=== PATIENT | male | born 1980 | race Hispanic/Latino ===

== ENCOUNTER 2021-01-06 09:09 | Inpatient (IN) | payer OTHER ==
[2021-01-06] VITALS (17 sets, daily range): BP systolic 115–161; BP diastolic 60–90
[~2021-01-06] VITALS: Ht 175.3 cm; Wt 117.0 kg
[2021-01-06] MEDS ORDERED: ACETAMINOPHEN 325 MG TAB PO PRN ×2 (10:30)
[2021-01-06] MEDS ORDERED: ONDANSETRON 4MG INJ IV PRN (10:30)
[2021-01-06] MEDS ORDERED: ZOLPIDEM TARTRATE 5 MG TAB PO PRN (10:30)
[2021-01-06] MEDS ORDERED: MAG/ALUM/SIMETH 30 ML UDCUP PO PRN (10:30)
[2021-01-06] MEDS ORDERED: AMINOCAPROIC ACID 5,000MG VIAL IV ONE (12:08)
[2021-01-06] MEDS ORDERED: ALBUMIN (HUMAN) 25% 50 ML IV ONE (12:08)
[2021-01-06] MEDS ORDERED: NOREPINEPHRINE BITARTRATE 1 MG/1 ML ML IV ONE (12:08)
[2021-01-06] MEDS ORDERED: SODIUM BICARB 8.4% 50ML SYRINGE IVP ONE (12:08)
[2021-01-06] MEDS ORDERED: HEPARIN 10,000 UNIT/10ML (1,000 UNIT/ML) VIAL IV ONE (12:08)
[2021-01-06] MEDS ORDERED: CACL 1GM SYG IVP ONE (12:08)
[2021-01-06 12:18] LABS: BASOPHILS % (AUTO) 0.6 % (0.0-5.0); EOSINOPHILS % (AUTO) 3.1 % (0.0-8.0); HEMATOCRIT 40.1 % (42-54); LYMPHOCYTES % (AUTO) 19.2 % (21.0-51.0); MEAN CORPUSCULAR HEMOGLOBIN 30.6 pg (27.0-33.0); MEAN CORPUSCULAR HGB CONC 32.7 g/dL (32.0-36.0); MEAN CORPUSCULAR VOLUME 93.7 fL (79-99); NEUTROPHILS % (AUTO) 69.7 % (40.0-77.0); PLATELET COUNT (AUTO) 286 K/uL (130-400); RED BLOOD CELL COUNT(AUTO) 4.28 MIL/uL (4.50-6.20); WHITE BLOOD COUNT (AUTO) 9.7 K/uL (4.8-10.8)
[2021-01-06 12:30] LABS: ALBUMIN 4.5 g/dL (3.5-5.0); BILIRUBIN,DIRECT 0.1 mg/dL (0.0-0.3); BILIRUBIN,TOTAL 0.4 mg/dL (0.2-1.0); TOTAL PROTEIN, SERUM 8.6 g/dL (6.0-8.3)
[2021-01-06 12:45] LABS: CREATININE 9.9 mg/dL (0.5-1.5)
[2021-01-06 13:32] LABS: INR 0.98 (0.85-1.15); PROTHROMBIN TIME 10.7 SEC (9.6-11.6)
[2021-01-06] MEDS ORDERED: 0.9%NACL 1000ML 1,000 ML IV PRN (14:30)
[2021-01-07] VITALS (19 sets, daily range): BP systolic 89–162; BP diastolic 42–83
[2021-01-07] MEDS ORDERED: FOLI0.8T22 PO (00:20)
[2021-01-07] MEDS ORDERED: METO50 PO (00:20)
[2021-01-07] MEDS ORDERED: GLIP2.5T2 PO (00:20)
[2021-01-07] MEDS ORDERED: ASPI-1443 PO (00:20)
[2021-01-07] MEDS ORDERED: RIVA2.5T PO (00:20)
[2021-01-07] MEDS ORDERED: PANT40TA54 PO (00:20)
[2021-01-07] MEDS ORDERED: HYDR25 PO (00:20)
[2021-01-07] MEDS ORDERED: CALC667C10 PO (00:20)
[2021-01-07] MEDS ORDERED: ATOR40TA71 PO (00:20)
[2021-01-07] MEDS ORDERED: CHOL-34 PO (00:20)
[2021-01-07] MEDS ORDERED: AMLO-257 PO (00:20)
[2021-01-07 04:37] LABS: BASOPHILS % (AUTO) 0.6 % (0.0-5.0); EOSINOPHILS % (AUTO) 2.5 % (0.0-8.0); HEMATOCRIT 33.3 % (42-54); LYMPHOCYTES % (AUTO) 26.8 % (21.0-51.0); MEAN CORPUSCULAR HEMOGLOBIN 30.4 pg (27.0-33.0); MONOCYTES % (AUTO) 8.8 % (3.0-13.0); NEUTROPHILS % (AUTO) 60.9 % (40.0-77.0); PLATELET COUNT (AUTO) 223 K/uL (130-400); RED BLOOD CELL COUNT(AUTO) 3.62 MIL/uL (4.50-6.20); RED CELL DISTRIBUTION WIDTH 14.9 % (11.0-15.5); WHITE BLOOD COUNT (AUTO) 10.1 K/uL (4.8-10.8)
[2021-01-07 04:57] LABS: ALBUMIN 3.8 g/dL (3.5-5.0); BILIRUBIN,DIRECT 0.1 mg/dL (0.0-0.3); BILIRUBIN,TOTAL 0.3 mg/dL (0.2-1.0); MAGNESIUM 2.2 mg/dL (1.80-2.40); PHOSPHORUS 5.8 mg/dL (2.5-4.9); POTASSIUM 4.4 mmol/L (3.5-5.1); TOTAL PROTEIN, SERUM 7.2 g/dL (6.0-8.3)
[2021-01-07 05:03] LABS: CREATININE 8.7 mg/dL (0.5-1.5)
[2021-01-07] MEDS ORDERED: 0.9% NACL 500ML IV.SOLN 500 ML IV ONE (07:05)
[2021-01-07] MEDS: CEFAZOLIN SODIUM 1 GM VIAL IVP PRN ×3 (07:08→15:52)
[2021-01-07] MEDS ORDERED: HEPARIN 10,000 UNIT/10ML (1,000 UNIT/ML) VIAL ONE ×2 (07:09→07:28)
[2021-01-07] MEDS ORDERED: OCTYL 2-CYANOACRYLATE 1 EACH TP ONE (07:09)
[2021-01-07] MEDS ORDERED: PAPAVERINE HCL 30 MG/ML 2ML VIAL ONE (07:10)
[2021-01-07] MEDS ORDERED: DELNIDO FORMULA 2 BAG IV ONE (07:13)
[2021-01-07 07:16] LABS: HEPATITIS Bs ANTIGEN SCREEN P Negative (Negative)
[2021-01-07] MEDS ORDERED: NITROGLYCERIN 50MG/D5W 250ML 1 BOT ONE ×2 (07:26→12:16)
[2021-01-07] MEDS ORDERED: PROTAMINE SULFATE 10 MG/ML 25ML VIAL IV ONE (07:28)
[2021-01-07] MEDS ORDERED: NOREPINEPHRINE BITARTRATE 1 MG/1 ML ML IV ONE (07:28)
[2021-01-07] MEDS ORDERED: SODIUM BICARB 50MEQ 50ML VIAL 150 ML ONE (07:28)
[2021-01-07] MEDS ORDERED: EPINEPHRINE PF 1MG AMP ONE (07:28)
[2021-01-07] MEDS ORDERED: PROPOFOL 10 MG/ML 20ML VIAL IV ONE (07:28)
[2021-01-07] MEDS ORDERED: FENTANYL CITRATE PF 50 MCG/1 ML 20ML VIAL IJ ONE (07:28)
[2021-01-07] MEDS ORDERED: LIDOCAINE PF 100MG/5ML (2%) SYRINGE 5ML ONE (07:28)
[2021-01-07] MEDS ORDERED: AMINOCAPROIC ACID 5,000MG VIAL ONE (07:28)
[2021-01-07] MEDS ORDERED: ESMOLOL HCL 10 MG/ML 10 ML VIAL ONE ×2 (07:28→07:31)
[2021-01-07] MEDS ORDERED: MIDAZOLAM HCL 1 MG/ML 2ML VIAL ONE (07:29)
[2021-01-07] MEDS ORDERED: SUCCINYLCHOLINE CHLORIDE 20 MG/ML 10 ML VIAL ONE (07:29)
[2021-01-07] MEDS ORDERED: LIDOCAINE HCL-MPF 1% 5ML AMP IJ ONE ×2 (07:29→09:29)
[2021-01-07] MEDS ORDERED: ROCURONIUM 10MG/1ML SYR 10 MG/ML ML ONE ×2 (07:29→10:28)
[2021-01-07] MEDS ORDERED: ETOMIDATE 20MG VIAL ONE (07:30)
[2021-01-07 08:24] LABS: ABG BASE EXCESS 0.3 mmol/L (-2.0-3.0); ABG HCO3 23.5 mmol/L (21.0-28.0); ABG OXYGEN SATURATION 99.1 % (95.0-99.0); ABG PCO2 33 mmHg (35-48)
[2021-01-07] MEDS: FAMOTIDINE 20MG TAB PO SCH (09:00)
[2021-01-07] MEDS: ENOXAPARIN SODIUM 30 MG/0.3 ML SQ SCH (09:00)
[2021-01-07 09:26] LABS: ABG HCO3 24.2 mmol/L (21.0-28.0); ABG PCO2 42 mmHg (35-48)
[2021-01-07 10:04] LABS: ABG BASE EXCESS -2.7 mmol/L (-2.0-3.0); ABG PCO2 37 mmHg (35-48)
[2021-01-07 10:27] LABS: ABG BASE EXCESS -2.1 mmol/L (-2.0-3.0); ABG HCO3 22.7 mmol/L (21.0-28.0); ABG PCO2 39 mmHg (35-48)
[2021-01-07] MEDS ORDERED: AMIODARONE 150MG VIAL ONE (10:27)
[2021-01-07] MEDS ORDERED: DESMOPRESSIN 40MCG INJ IJ ONE (10:59)
[2021-01-07 11:18] LABS: ABG BASE EXCESS -4.4 mmol/L (-2.0-3.0); ABG HCO3 20.5 mmol/L (21.0-28.0); ABG OXYGEN SATURATION 98.5 % (95.0-99.0); ABG PCO2 37 mmHg (35-48)
[2021-01-07 11:40] LABS: ABG BASE EXCESS -0.8 mmol/L (-2.0-3.0); ABG HCO3 23.2 mmol/L (21.0-28.0); ABG OXYGEN SATURATION 98.5 % (95.0-99.0); ABG PCO2 36 mmHg (35-48)
[2021-01-07] MEDS ORDERED: SODIUM BICARB 8.4% 50ML SYRINGE IV PRN (12:30)
[2021-01-07] MEDS ORDERED: PROPOFOL 1000 MG/100 ML IV PRN (12:30)
[2021-01-07] MEDS ORDERED: 0.9% NACL 500ML IV SCH (12:30)
[2021-01-07] MEDS ORDERED: 0.9%NACL 1000ML IV SCH (12:30)
[2021-01-07] MEDS ORDERED: ACETAMINOPHEN 650 MG SUPPOSITORY RC PRN (12:30)
[2021-01-07] MEDS ORDERED: SODIUM CHLORIDE IV PRN (12:30)
[2021-01-07] MEDS ORDERED: POTASSIUM CHLORIDE 10 MEQ/NS 50ML IV PRN ×2 (12:30)
[2021-01-07] MEDS ORDERED: POTASSIUM PHOS 15 mMOL+NS250ML IV PRN (12:30)
[2021-01-07] MEDS ORDERED: MORPHINE 4 MG SYG IVP PRN (12:30)
[2021-01-07] MEDS ORDERED: ACETAMINOPHEN 325 MG TAB PO PRN (12:30)
[2021-01-07] MEDS ORDERED: 0.9%NACL 10ML VIAL IVP PRN (12:30)
[2021-01-07] MEDS ORDERED: NICARDIPINE HCL 100 MG/NS 100ML IV SCH ×2 (12:30)
[2021-01-07] MEDS ORDERED: MAGNESIUM 2GM PREMIX IV PRN (12:30)
[2021-01-07] MEDS ORDERED: INSULIN REGULAR HUMAN 100 UNIT /NS 100ML IV SCH ×2 (12:30)
[2021-01-07] MEDS ORDERED: AMINOCAPROIC ACID 5,000MG VIAL 15,000 MG in 0.9% NACL 250ML 190 ML IV SCH (12:30)
[2021-01-07] MEDS ORDERED: NITROGLYCERIN 50 MG/D5% WATER 250 ML IV PRN (12:30)
[2021-01-07] MEDS ORDERED: CALCIUM GLUC 1 GM/NS 50ML IV PRN ×2 (12:30)
[2021-01-07] MEDS ORDERED: NOREPINEPHRINE IV PRN (12:30)
[2021-01-07] MEDS ORDERED: POTASSIUM CHLORIDE 20MEQ/100ML IV PRN (12:30)
[2021-01-07] MEDS ORDERED: CALCIUM GLUC 1 GM /D5W 50ML IV PRN ×2 (12:30)
[2021-01-07 12:51] LABS: ABG BASE EXCESS -1.2 mmol/L (-2.0-3.0); ABG HCO3 22.5 mmol/L (21.0-28.0); ABG OXYGEN SATURATION 96.8 % (95.0-99.0); ABG PCO2 34 mmHg (35-48)
[2021-01-07 12:51] LABS: HEMATOCRIT 29.9 % (42-54); MEAN CORPUSCULAR HEMOGLOBIN 30.3 pg (27.0-33.0); MEAN CORPUSCULAR HGB CONC 33.1 g/dL (32.0-36.0); MEAN CORPUSCULAR VOLUME 91.4 fL (79-99); PLATELET COUNT (AUTO) 198 K/uL (130-400); RED BLOOD CELL COUNT(AUTO) 3.27 MIL/uL (4.50-6.20); WHITE BLOOD COUNT (AUTO) 14.1 K/uL (4.8-10.8)
[2021-01-07 12:54] LABS: ABG OXYGEN SATURATION 71.2 % (95.0-99.0); BASE EXCESS,VENOUS BLOOD GAS -0.9 (-2.0-3.0); HCO3,VENOUS BLOOD GAS 23.3 (21.0-28.0); PCO2,VENOUS BLOOD GAS 38 (35-48); PH,VENOUS BLOOD GAS 7.411 (7.350-7.450)
[2021-01-07 12:58] LABS: INR 1.14 (0.85-1.15); PROTHROMBIN TIME 12.3 SEC (9.6-11.6)
[2021-01-07 12:59] LABS: PARTIAL THROMBOPLASTIN TIME 21.6 SEC (26.3-35.5)
[2021-01-07 13:04] LABS: CREATININE 7.8 mg/dL (0.5-1.5); MAGNESIUM 2.3 mg/dL (1.80-2.40); PHOSPHORUS 4.5 mg/dL (2.5-4.9); POTASSIUM 5.3 mmol/L (3.5-5.1)
[2021-01-07 13:26] LABS: BAND NEUTROPHILS % (MANUAL) 1 % (0-2); LYMPHOCYTES % (MANUAL) 26 % (22-44); MONOCYTES % (MANUAL) 3 % (2-9); SEGMENTED NEUTROPHILS % 70 % (40-70)
[2021-01-07 13:27] LABS: MAN.DIFF COMMENT-IMPRESSION MANUAL DIFFERENTIAL; PLATELET MORPHOLOGY COMMENT ADEQUATE
[2021-01-07] MEDS: 0.9%NACL 1000ML 1,000 ML IV SCH (13:56)
[2021-01-07 15:21] LABS: ABG BASE EXCESS -2.5 mmol/L (-2.0-3.0); ABG HCO3 22.8 mmol/L (21.0-28.0); ABG OXYGEN SATURATION 97.2 % (95.0-99.0); ABG PCO2 42 mmHg (35-48)
[2021-01-07] MEDS: MORPHINE 2 MG SYG IVP PRN ×2 (15:35→19:26)
[2021-01-07 16:27] LABS: ABG BASE EXCESS -2.5 mmol/L (-2.0-3.0); ABG HCO3 23.2 mmol/L (21.0-28.0); ABG OXYGEN SATURATION 96.8 % (95.0-99.0); ABG PCO2 44 mmHg (35-48)
[2021-01-07] MEDS ORDERED: ALBUMIN (HUMAN) 5% 250 ML IV ONE ×2 (16:58→17:15)
[2021-01-07] MEDS ORDERED: ALBUMIN (HUMAN) 5% 250 ML IV SCH (17:30)
[2021-01-07] MEDS: HYDROCODONE/ACETAMINOPHEN 5/325 MG TAB PO PRN (20:56)
[2021-01-08] VITALS (38 sets, daily range): BP systolic 85–132; BP diastolic 42–82
[2021-01-08] MEDS: HYDROCODONE/ACETAMINOPHEN 5/325 MG TAB PO PRN ×5 (00:35→22:01)
[2021-01-08 04:53] LABS: ABG BASE EXCESS -5.1 mmol/L (-2.0-3.0); ABG HCO3 20.2 mmol/L (21.0-28.0); ABG OXYGEN SATURATION 95.3 % (95.0-99.0); ABG PCO2 38 mmHg (35-48)
[2021-01-08 05:09] LABS: HEMATOCRIT 29.5 % (42-54); MEAN CORPUSCULAR HEMOGLOBIN 29.7 pg (27.0-33.0); MEAN CORPUSCULAR HGB CONC 31.9 g/dL (32.0-36.0); MEAN CORPUSCULAR VOLUME 93.4 fL (79-99); RED BLOOD CELL COUNT(AUTO) 3.16 MIL/uL (4.50-6.20); RED CELL DISTRIBUTION WIDTH 15.3 % (11.0-15.5); WHITE BLOOD COUNT (AUTO) 13.7 K/uL (4.8-10.8)
[2021-01-08 05:24] LABS: MAGNESIUM 2.4 mg/dL (1.80-2.40); PHOSPHORUS 4.8 mg/dL (2.5-4.9)
[2021-01-08 05:39] LABS: CREATININE 10.9 mg/dL (0.5-1.5); POTASSIUM 7.9 mmol/L (3.5-5.1)
[2021-01-08] MEDS ORDERED: KETOROLAC 15MG/ML VIAL (15MG/ML) ONE (08:31)
[2021-01-08] MEDS: ENOXAPARIN SODIUM 30 MG/0.3 ML SQ SCH (08:47)
[2021-01-08] MEDS: FAMOTIDINE 20MG TAB PO SCH (09:30)
[2021-01-08] MEDS: ASPIRIN 81 MG EC TAB PO SCH (09:30)
[2021-01-08] MEDS: 0.9%NACL 1000ML 1,000 ML IV SCH (12:30)
[2021-01-09] VITALS (22 sets, daily range): BP systolic 99–146; BP diastolic 43–79
[2021-01-09 05:17] LABS: HEMATOCRIT 27.2 % (42-54); MEAN CORPUSCULAR HEMOGLOBIN 29.9 pg (27.0-33.0); MEAN CORPUSCULAR HGB CONC 32.4 g/dL (32.0-36.0); MEAN CORPUSCULAR VOLUME 92.5 fL (79-99); RED BLOOD CELL COUNT(AUTO) 2.94 MIL/uL (4.50-6.20); RED CELL DISTRIBUTION WIDTH 15.3 % (11.0-15.5); WHITE BLOOD COUNT (AUTO) 12.7 K/uL (4.8-10.8)
[2021-01-09] MEDS: HYDROCODONE/ACETAMINOPHEN 5/325 MG TAB PO PRN ×4 (05:40→23:52)
[2021-01-09 05:52] LABS: MAGNESIUM 2.3 mg/dL (1.80-2.40); PHOSPHORUS 7.1 mg/dL (2.5-4.9); POTASSIUM 5.6 mmol/L (3.5-5.1)
[2021-01-09 06:00] LABS: CREATININE 9.3 mg/dL (0.5-1.5)
[2021-01-09] MEDS: ASPIRIN 81 MG EC TAB PO SCH (10:22)
[2021-01-09] MEDS: METOPROLOL TARTRATE 25 MG TAB PO SCH ×2 (10:22→21:55)
[2021-01-09] MEDS: ENOXAPARIN SODIUM 30 MG/0.3 ML SQ SCH (10:22)
[2021-01-09] MEDS: FAMOTIDINE 20MG TAB PO SCH (10:22)
[2021-01-09] MEDS: INSULIN HUMULIN R 100 UNIT/ML 3ML SQ SCH ×3 (11:30→19:52)
[2021-01-09] MEDS: 0.9%NACL 1000ML 1,000 ML IV SCH (12:30)
[2021-01-09] MEDS ORDERED: SODIUM ZIRCONIUM CYCLOSILICATE 5 GM POWD.PACK PO SCH (17:30)
[2021-01-10] VITALS (29 sets, daily range): BP systolic 96–125; BP diastolic 43–70
[2021-01-10 04:34] LABS: BASOPHILS % (AUTO) 0.2 % (0.0-5.0); EOSINOPHILS % (AUTO) 2.2 % (0.0-8.0); HEMATOCRIT 25.9 % (42-54); MEAN CORPUSCULAR HEMOGLOBIN 29.8 pg (27.0-33.0); MEAN CORPUSCULAR HGB CONC 32.8 g/dL (32.0-36.0); MEAN CORPUSCULAR VOLUME 90.9 fL (79-99); MONOCYTES % (AUTO) 13.5 % (3.0-13.0); NEUTROPHILS % (AUTO) 72.5 % (40.0-77.0); NUCLEATED RED BLOOD CELLS 0.2 % (0.0-0.19); PLATELET COUNT (AUTO) 166 K/uL (130-400); RED BLOOD CELL COUNT(AUTO) 2.85 MIL/uL (4.50-6.20); RED CELL DISTRIBUTION WIDTH 15.4 % (11.0-15.5); WHITE BLOOD COUNT (AUTO) 8.5 K/uL (4.8-10.8)
[2021-01-10 04:43] LABS: HEMOGLOBIN A1C 5.6 % (4.0-6.0)
[2021-01-10 04:52] LABS: PHOSPHORUS 7.9 mg/dL (2.5-4.9); POTASSIUM 5.2 mmol/L (3.5-5.1)
[2021-01-10 04:55] LABS: CREATININE 11.4 mg/dL (0.5-1.5)
[2021-01-10] MEDS: INSULIN HUMULIN R 100 UNIT/ML 3ML SQ SCH ×4 (06:21→20:30)
[2021-01-10] MEDS: METOPROLOL TARTRATE 25 MG TAB PO SCH ×3 (09:00→20:30)
[2021-01-10] MEDS: 0.9%NACL 1000ML 1,000 ML IV SCH (12:30)
[2021-01-10] MEDS: ENOXAPARIN SODIUM 30 MG/0.3 ML SQ SCH (13:39)
[2021-01-10] MEDS: FAMOTIDINE 20MG TAB PO SCH (13:39)
[2021-01-10] MEDS: ASPIRIN 81 MG EC TAB PO SCH (13:39)
[2021-01-11 03:15] VITALS: BP 122/70
[2021-01-11] MEDS: INSULIN HUMULIN R 100 UNIT/ML 3ML SQ SCH ×4 (06:53→20:36)
[2021-01-11 06:56] LABS: POTASSIUM 4.5 mmol/L (3.5-5.1)
[2021-01-11 07:06] LABS: CREATININE 9.8 mg/dL (0.5-1.5)
[2021-01-11 08:00] VITALS: BP 114/73
[2021-01-11] MEDS: 0.9%NACL 1000ML 1,000 ML IV SCH (08:25)
[2021-01-11] MEDS: ENOXAPARIN SODIUM 30 MG/0.3 ML SQ SCH (09:10)
[2021-01-11] MEDS: METOPROLOL TARTRATE 25 MG TAB PO SCH ×2 (09:10→20:32)
[2021-01-11] MEDS: FAMOTIDINE 20MG TAB PO SCH (09:10)
[2021-01-11] MEDS: ASPIRIN 81 MG EC TAB PO SCH (09:10)
[2021-01-11 12:11] VITALS: BP 117/67
[2021-01-11 16:09] VITALS: BP 104/69
[2021-01-11 20:00] VITALS: BP 128/71
[2021-01-12] VITALS (21 sets, daily range): BP systolic 97–158; BP diastolic 53–90
[2021-01-12] MEDS: INSULIN HUMULIN R 100 UNIT/ML 3ML SQ SCH ×4 (07:30→20:27)
[2021-01-12 07:45] LABS: POTASSIUM 4.7 mmol/L (3.5-5.1)
[2021-01-12 07:48] LABS: CREATININE 11.4 mg/dL (0.5-1.5)
[2021-01-12] MEDS: ASPIRIN 81 MG EC TAB PO SCH (08:03)
[2021-01-12] MEDS: METOPROLOL TARTRATE 25 MG TAB PO SCH ×2 (08:03→20:26)
[2021-01-12] MEDS: FAMOTIDINE 20MG TAB PO SCH (08:03)
[2021-01-12] MEDS: ENOXAPARIN SODIUM 30 MG/0.3 ML SQ SCH (08:03)
[2021-01-12] MEDS ORDERED: EPOETIN ALFA-EPBX (ESRD) 10,000 UNIT/ML VIAL SQ SCH (09:00)
[2021-01-12] MEDS: 0.9%NACL 1000ML 1,000 ML IV SCH (12:30)
[2021-01-12] MEDS: ATORVASTATIN 40 MG TABLET PO SCH (20:26)
[2021-01-13 03:00] VITALS: BP 125/83
[2021-01-13 04:02] LABS: HEMATOCRIT 26.9 % (42-54); MEAN CORPUSCULAR HGB CONC 32.7 g/dL (32.0-36.0); MEAN CORPUSCULAR VOLUME 91.8 fL (79-99); RED BLOOD CELL COUNT(AUTO) 2.93 MIL/uL (4.50-6.20); RED CELL DISTRIBUTION WIDTH 15.2 % (11.0-15.5); WHITE BLOOD COUNT (AUTO) 11.5 K/uL (4.8-10.8)
[2021-01-13 04:23] LABS: ALBUMIN 3.4 g/dL (3.5-5.0); BILIRUBIN,TOTAL 0.3 mg/dL (0.2-1.0); POTASSIUM 4.5 mmol/L (3.5-5.1); TOTAL PROTEIN, SERUM 7.6 g/dL (6.0-8.3)
[2021-01-13] MEDS: INSULIN HUMULIN R 100 UNIT/ML 3ML SQ SCH ×2 (05:53→11:30)
[2021-01-13 07:00] VITALS: BP 107/55
[2021-01-13] MEDS: ASPIRIN 81 MG EC TAB PO SCH (09:43)
[2021-01-13] MEDS: FAMOTIDINE 20MG TAB PO SCH (09:43)
[2021-01-13] MEDS: METOPROLOL TARTRATE 25 MG TAB PO SCH ×2 (09:43→21:22)
[2021-01-13 11:00] VITALS: BP 133/70
[2021-01-13] MEDS: 0.9%NACL 1000ML 1,000 ML IV SCH (12:30)
[2021-01-13 16:00] VITALS: BP 123/66
[2021-01-13 20:00] VITALS: BP 157/111
[2021-01-13] MEDS: ATORVASTATIN 40 MG TABLET PO SCH (21:22)
[2021-01-13] MEDS: BALSAM PERU/CASTOR OIL 60 GM TUBE TP SCH (21:22)
[2021-01-13 23:31] VITALS: BP 103/54
[2021-01-14] VITALS (19 sets, daily range): BP systolic 107–162; BP diastolic 40–91
[2021-01-14 04:23] LABS: BASOPHILS % (AUTO) 0.2 % (0.0-5.0); EOSINOPHILS % (AUTO) 2.8 % (0.0-8.0); HEMATOCRIT 23.9 % (42-54); LYMPHOCYTES % (AUTO) 17.4 % (21.0-51.0); MEAN CORPUSCULAR HGB CONC 33.1 g/dL (32.0-36.0); MEAN CORPUSCULAR VOLUME 90.9 fL (79-99); NEUTROPHILS % (AUTO) 66.8 % (40.0-77.0); PLATELET COUNT (AUTO) 236 K/uL (130-400); RED BLOOD CELL COUNT(AUTO) 2.63 MIL/uL (4.50-6.20); RED CELL DISTRIBUTION WIDTH 15.2 % (11.0-15.5); WHITE BLOOD COUNT (AUTO) 9.7 K/uL (4.8-10.8)
[2021-01-14 04:38] LABS: POTASSIUM 4.3 mmol/L (3.5-5.1)
[2021-01-14 04:51] LABS: CREATININE 11.9 mg/dL (0.5-1.5)
[2021-01-14] MEDS: ASPIRIN 81 MG EC TAB PO SCH (08:21)
[2021-01-14] MEDS: FAMOTIDINE 20MG TAB PO SCH (08:21)
[2021-01-14] MEDS: METOPROLOL TARTRATE 25 MG TAB PO SCH (08:21)
[2021-01-14] MEDS: BALSAM PERU/CASTOR OIL 60 GM TUBE TP SCH ×2 (09:00→13:31)
[2021-01-14] MEDS: 0.9%NACL 1000ML 1,000 ML IV SCH (12:30)
== END 2021-01-14 19:15 | DRG 235 ==
LOC: EDH 09:09 → OBSVTOIN 10:01 → EDHIP 10:01 → 4DH 21:54 → 2CV 01-07 07:37 → 2CH 01-08 08:20 → 2DH 01-10 21:47
PROVIDERS: ADMIT Hospitalist; ATTEND Hospitalist
PROC: 5A1D70Z Performance of Urinary Filtration, Intermittent, Less than 6 Hours Per Day (ICD-10-PCS; 2021-01-06)
PROC: 5A2204Z Restoration of Cardiac Rhythm, Single (ICD-10-PCS; 2021-01-07)
PROC: 30233R1 Transfusion of Nonautologous Platelets into Peripheral Vein, Percutaneous Approach (ICD-10-PCS; 2021-01-07)
PROC: 5A1221Z Performance of Cardiac Output, Continuous (ICD-10-PCS; 2021-01-07)
PROC: 02100Z9 Bypass Coronary Artery, One Artery from Left Internal Mammary, Open Approach (ICD-10-PCS; principal; 2021-01-07 07:30)
PROC: 021109W Bypass Coronary Artery, Two Arteries from Aorta with Autologous Venous Tissue, Open Approach (ICD-10-PCS; 2021-01-07 07:30)
PROC: 06BQ4ZZ Excision of Left Saphenous Vein, Percutaneous Endoscopic Approach (ICD-10-PCS; 2021-01-07 07:30)
PROC: 5A1D70Z Performance of Urinary Filtration, Intermittent, Less than 6 Hours Per Day (ICD-10-PCS; 2021-01-08)
PROC: 5A1D70Z Performance of Urinary Filtration, Intermittent, Less than 6 Hours Per Day (ICD-10-PCS; 2021-01-09)
PROC: 5A1D70Z Performance of Urinary Filtration, Intermittent, Less than 6 Hours Per Day (ICD-10-PCS; 2021-01-10)
PROC: 5A1D70Z Performance of Urinary Filtration, Intermittent, Less than 6 Hours Per Day (ICD-10-PCS; 2021-01-12)
PROC: 5A1D70Z Performance of Urinary Filtration, Intermittent, Less than 6 Hours Per Day (ICD-10-PCS; 2021-01-14)
DX: I25.10 Atherosclerotic heart disease of native coronary artery without angina pectoris (principal); N18.6 End stage renal disease; I12.0 Hypertensive chronic kidney disease with stage 5 chronic kidney disease or end stage renal disease; E11.22 Type 2 diabetes mellitus with diabetic chronic kidney disease; D64.9 Anemia, unspecified; E83.39 Other disorders of phosphorus metabolism; E87.5 Hyperkalemia; E66.9 Obesity, unspecified; E11.51 Type 2 diabetes mellitus with diabetic peripheral angiopathy without gangrene; E87.70 Fluid overload, unspecified; Z68.38 Body mass index [BMI] 38.0-38.9, adult; E78.5 Hyperlipidemia, unspecified; Z20.822 Contact with and (suspected) exposure to COVID-19; I34.0 Nonrheumatic mitral (valve) insufficiency; I25.2 Old myocardial infarction; Z99.2 Dependence on renal dialysis; Z95.5 Presence of coronary angioplasty implant and graft; Z83.3 Family history of diabetes mellitus; Z83.438 Family history of other disorder of lipoprotein metabolism and other lipidemia
CPT/HCPCS: 36415; 36600; 71045; 80048; 80053; 80076; 82435; 82803; 82947; 82948; 83036; 83605; 83735; 84100; 84132; 84295; 85018; 85025; 85027; 85347; 85610; 85730; 86704; 86706; 86850; 86900; 86901; 86923; 87340; 90935; 93005; 93306; 93356; 94002; 94150; 97039; A7048; C1729; C1757; G0378; J0171; J0282; J0330; J0690; J1644; J1650; J1815; J1885; J2001; J2250; J2270; J2440; J2597; J2704; J2720; J3010; J3490; J7030; J7040; J7120; P9034; P9045; P9047